=== PATIENT | female | born 1955 | race Two or more races ===

== ENCOUNTER 2018-08-09 09:05 | Emergency (ER) | payer OTHER ==
[~2018-08-09] VITALS: Ht 160 cm; Wt 59.0 kg
[~2018-08-09 09:05] MED LIST: CELEBREX100 MG PO; NABUMETONE750 MG PO; ROBAXIN500 MG PO
[2018-08-09] MEDS ORDERED: LEVOXYL50 MCG (09:33)
[2018-08-09] MEDS ORDERED: FORTAMET500 MG (09:33)
== END 2018-08-09 21:39 | disposition home or self-care (01) ==
LOC: ER 09:05
DX: K29.00 Acute gastritis without bleeding (principal)

== ENCOUNTER 2018-08-11 08:37 | Emergency (ER) | payer OTHER ==
[~2018-08-11] VITALS: Ht 152.4 cm; Wt 58.1 kg
[~2018-08-11 08:37] MED LIST changes: +FORTAMET500 MG; +LEVOXYL50 MCG
== END 2018-08-11 17:52 | disposition home or self-care (01) ==
LOC: ER 08:37
DX: K29.70 Gastritis, unspecified, without bleeding (principal)

== ENCOUNTER 2022-06-21 16:16 | Outpatient (CLI) | payer OTHER | END 2022-06-21 16:28 | disposition home or self-care (01) | LOC: RAD 16:16 | PROVIDERS: ATTEND General Practice | DX: M25.572 Pain in left ankle and joints of left foot (principal) ==